=== PATIENT | female | born 1995 | race Caucasian/White ===

== ENCOUNTER 2023-12-17 18:21 | Emergency (ER) | payer MEDICAID ==
[~2023-12-17] VITALS: Ht 167.6 cm; Wt 72.7 kg
[~2023-12-17 18:21] MED LIST: OMEP-84 PO; SYN0.075T PO
[2023-12-17 18:48] VITALS: BP 119/81; PULSE 89; RESP 18; TEMP 98.7; O2SAT 100
[2023-12-17] MEDS ORDERED: NAPR-56 PO (21:00)
== END 2023-12-17 21:10 | disposition home or self-care (01) ==
LOC: ER 18:21
DX: M79.642 Pain in left hand (principal); F32.9 Major depressive disorder, single episode, unspecified; F41.9 Anxiety disorder, unspecified; F12.90 Cannabis use, unspecified, uncomplicated
CPT/HCPCS: 73130; 99283

== ENCOUNTER 2024-11-04 08:28 | Outpatient (CLI) | payer MEDICAID ==
[~2024-11-04] VITALS: Ht 167.6 cm; Wt 65.8 kg
[2024-11-04] MEDS ORDERED: sincalide inj 1.3 MCG in normal saline 100ml IV soln 98.7 ML IV ONE (10:20)
[2024-11-04] MEDS: sincalide inj 1.3 MCG in normal saline 100ml IV soln 100 ML IV ONE (11:23)
== END 2024-11-04 23:59 | disposition home or self-care (01) ==
LOC: RAD 08:28
PROVIDERS: ATTEND Surgery
DX: R10.11 Right upper quadrant pain (principal)
CPT/HCPCS: 78227; A9537; J2805